=== PATIENT | male | born 1990 | race Two or more races ===

== ENCOUNTER 2025-07-14 03:43 | Inpatient (IN) | payer MEDICAID ==
[~2025-07-14] VITALS: Ht 185.4 cm; Wt 104.3 kg
[2025-07-14 06:00] VITALS: BP 125/85; TEMP 97.8; O2SAT 95
[2025-07-14 07:00] VITALS: BP 118/78; TEMP 98.2; O2SAT 96
[2025-07-14] MEDS ORDERED: DOSING PER PHARMACY-VANCOMYCIN IV XX PRN (07:00)
[2025-07-14] MEDS ORDERED: Z GUARD REMEDY 4 OZ OINT TP PRN (07:00)
[2025-07-14] MEDS ORDERED: MAG HYDROX/AL HYDROX/SIMETH 30 ML UDC PO PRN (07:00)
[2025-07-14] MEDS ORDERED: ZOLPIDEM TARTRATE 5 MG TABLET PO PRN (07:00)
[2025-07-14] MEDS ORDERED: ONDANSETRON HCL/PF 4 MG/2 ML VIAL IVP PRN (07:00)
[2025-07-14] MEDS ORDERED: ACETAMINOPHEN 325 MG TABLET PO PRN (07:00)
[2025-07-14] MEDS ORDERED: HYDROCODONE/APAP 5/325MG TABLET PO PRN (07:00)
[2025-07-14] MEDS ORDERED: MAGNESIUM HYDROXIDE 30 ML UDC PO PRN (07:00)
[2025-07-14] MEDS: IV NS 0.9% 1,000 ML IV PRN (08:01)
[2025-07-14] MEDS: CEFTRIAXONE 1 G in IV D5W 50 ML IV SCH (08:59)
[2025-07-14 09:32] LABS: PLATELET COUNT (AUTO) 169 K/uL (150-450); RED BLOOD CELL COUNT(AUTO) 4.24 MIL/uL (4.5-6.0); RED CELL DISTRIBUTION WIDTH 13.4 % (11.5-15.0); WHITE BLOOD COUNT (AUTO) 7.6 K/uL (4.3-11.0)
[2025-07-14 09:38] LABS: CALCIUM, SERUM 8.7 mg/dL (8.5-10.1); CREATININE 0.9 mg/dL (0.6-1.3); SODIUM SERUM 140.0 mmol/L (136-145); UREA NITROGEN, BLOOD 15.0 mg/dL (7-18)
[2025-07-14] MEDS: PANTOPRAZOLE 40 MG VIAL IV SCH (09:43)
[2025-07-14 11:00] VITALS: BP 121/75; TEMP 98.2; O2SAT 95
[2025-07-14] MEDS: VANCOMYCIN HCL 1.25 GM in IV D5W 250 ML IV ONE (11:05)
[2025-07-14] MEDS: LORAZEPAM 1 MG TABLET PO PRN (11:21)
[2025-07-14] MEDS: VANCOMYCIN 1 GM in IV D5W 250ml IV ONE (12:40)
[2025-07-14 15:00] VITALS: BP 111/69; TEMP 97.9; O2SAT 98
[2025-07-14 20:00] VITALS: BP 120/85; TEMP 98.2; O2SAT 96
[2025-07-14] MEDS: VANCOMYCIN HCL 1.25 GM in IV D5W 250 ML IV SCH (21:48)
[2025-07-15 07:18] LABS: PLATELET COUNT (AUTO) 174 K/uL (150-450); RED BLOOD CELL COUNT(AUTO) 4.27 MIL/uL (4.5-6.0); RED CELL DISTRIBUTION WIDTH 13.7 % (11.5-15.0); WHITE BLOOD COUNT (AUTO) 5.7 K/uL (4.3-11.0)
[2025-07-15 07:52] LABS: ASPARTATE AMINOTRANSFERASE 95.0 U/L (15-37); CALCIUM, SERUM 8.1 mg/dL (8.5-10.1); CREATININE 0.9 mg/dL (0.6-1.3); PHOSPHORUS 2.6 mg/dL (2.5-4.9); SODIUM SERUM 141.0 mmol/L (136-145); TOTAL PROTEIN, SERUM 6.7 g/dL (6.4-8.2); UREA NITROGEN, BLOOD 11.0 mg/dL (7-18)
[2025-07-15 08:00] VITALS: BP 138/84; TEMP 98.1; O2SAT 98
[2025-07-15] MEDS: PANTOPRAZOLE 40 MG TABLET.DR PO SCH (09:02)
[2025-07-15] MEDS: POTASSIUM CHLORIDE 20 MEQ POWDER PACKET PO ONE (11:07)
[2025-07-15] MEDS ORDERED: CLIN300C12 PO (13:39)
[2025-07-15] MEDS ORDERED: PANT40TA49 PO (13:39)
== END 2025-07-15 16:00 | disposition home or self-care (01) | DRG 253 ==
LOC: TELE 05:44 → EDBD 05:44 → MED 18:33
PROVIDERS: ADMIT Nurse Practitioner Acute Care; ATTEND Nurse Practitioner Acute Care
DX: K92.2 Gastrointestinal hemorrhage, unspecified (principal); L03.115 Cellulitis of right lower limb; L03.116 Cellulitis of left lower limb; E66.9 Obesity, unspecified; Z68.30 Body mass index [BMI] 30.0-30.9, adult; Z90.49 Acquired absence of other specified parts of digestive tract; R74.01 Elevation of levels of liver transaminase levels; S81.802A Unspecified open wound, left lower leg, initial encounter; S81.801A Unspecified open wound, right lower leg, initial encounter; X58.XXXA Exposure to other specified factors, initial encounter; Y93.9 Activity, unspecified; Y92.9 Unspecified place or not applicable
CPT/HCPCS: 36415; 80048-TC; 80053-TC; 80202-TC; 83735-TC; 84100-TC; 85025-TC; 87081-TC; A4223; G0378; J0696; J2470; J3373; J7030; J7060